=== PATIENT | male | born 1990 | race African-American/Black ===

== ENCOUNTER 2017-12-07 15:05 | Emergency (ER) | payer OTHER ==
[~2017-12-07] VITALS: Ht 180.3 cm; Wt 95.0 kg
[~2017-12-07 15:05] MED LIST: AMOX875T PO
[2017-12-07 15:24] VITALS: BP 132/68; PULSE 66; RESP 16; TEMP 98.6; O2SAT 98
[2017-12-07 16:43] LABS: AUTOMATED NEUTROPHIL # 1.7 TH/MM3 (1.8-7.7); BASOPHIL % 0.8 % (0.0-2.0); EOSINOPHIL # 0.2 TH/MM3 (0-0.4); EOSINOPHIL % 3.6 % (0.0-4.0); HEMATOCRIT 41.2 % (39.0-51.0); HEMOGLOBIN 14.4 GM/DL (13.0-17.0); LYMPH % 46.5 % (9.0-44.0); MEAN CELL VOLUME 92.9 FL (80.0-100.0); MEAN CORPUSCULAR HEMOGLOBIN 32.5 PG (27.0-34.0); MONO % 9.8 % (0.0-8.0); MONOCYTE # 0.4 TH/MM3 (0-0.9); NEUT % 39.3 % (16.0-70.0); PLATELET COUNT 219 TH/MM3 (150-450); RED BLOOD COUNT 4.43 MIL/MM3 (4.50-5.90); RED CELL DISTRIBUTION WIDTH 13.4 % (11.6-17.2); WHITE BLOOD COUNT 4.2 TH/MM3 (4.0-11.0)
--- NOTE | 2017-12-07 16:50 | PD ---
HPI Chief Complaint: Psychiatric Symptoms Time Seen by Provider: 15:28 Travel History International Travel<30 days: No Contact w/Intl Traveler<30days: No Traveled to known affect area: No History of Present Illness HPI 26-year-old male presents to the emergency room under [place] act initiated by Police Department. According Re[place] act, patient texted his girlfriend that he can be found [place] in the [place] when she gets home and he would be better off looking down from has been at her and the children. Patient admits to staying this but states he just did it because he was fighting with her. He denies suicidal or homicidal ideation at this time. He denies history of suicide attempt or psychiatric illness. He denies any medical complaints. He denies any chronic medical conditions or daily medications. Smokes marijuana daily. Smokes cigarettes occasionally. Denies alcohol or any other illicit drug use. Denies hallucinations or delusions. PFSH Past Medical History Medical History: Denies Significant Hx Tetanus Vaccination: Unknown Influenza Vaccination: No Past Surgical History Surgical History: No Previous Surgery Social History Alcohol Use: Yes (OCCASIONALLY) Tobacco Use: Yes (2 CIGARETTES/DAY) Substance Use: Yes (MARIJUANA OCCASIONALLY) Allergies-Medications (Allergen,Severity, Reaction): Coded Allergies: No Known Allergies (Unverified Adverse Reaction, Unknown, 12/07/17) Reported Meds & Prescriptions Reported Meds & Active Scripts Active No Active Prescriptions or Reported Medications Review of Systems Except as stated in HPI: all other systems reviewed are Neg Physical Exam Narrative GENERAL: Well-nourished, well-developed male in no acute distress. Afebrile. Ambulatory. SKIN: Focused skin assessment warm/dry. HEAD: Normocephalic. EYES: No scleral icterus. No injection or drainage. NECK: Supple, trachea midline. No JVD or lymphadenopathy. CARDIOVASCULAR: Regular rate and rhythm without murmurs, gallops, or rubs. RESPIRATORY: Breath sounds equal bilaterally. No accessory muscle use. PSYCHIATRIC: No delusional thought processes. No hallucinations. Normal affect. Data Data Last Documented VS Vital Signs Date Time Temp Pulse Resp B/P (MAP) Pulse Ox O2 Delivery O2 Flow Rate FiO2 12/07/17 15:24 98.6 66 16 132/68 (89) 98 Orders Orders Complete Blood Count With Diff (12/07/17 16:06) Comprehensive Metabolic Panel (12/07/17 16:06) Thyroid Stimulating Hormone (12/07/17 16:06) Psych Screen (12/07/17 16:06) Drug Screen, Random Urine (12/07/17 16:06) Alcohol (Ethanol) (12/07/17 16:06) Labs Laboratory Tests Test 12/07/17 16:15 White Blood Count 4.2 TH/MM3 Red Blood Count 4.43 MIL/MM3 Hemoglobin 14.4 GM/DL Hematocrit 41.2 % Mean Corpuscular Volume 92.9 FL Mean Corpuscular Hemoglobin 32.5 PG Mean Corpuscular Hemoglobin Concent 35.0 % Red Cell Distribution Width 13.4 % Platelet Count 219 TH/MM3 Mean Platelet Volume 8.0 FL Neutrophils (%) (Auto) 39.3 % Lymphocytes (%) (Auto) 46.5 % Monocytes (%) (Auto) 9.8 % Eosinophils (%) (Auto) 3.6 % Basophils (%) (Auto) 0.8 % Neutrophils # (Auto) 1.7 TH/MM3 Lymphocytes # (Auto) 2.0 TH/MM3 Monocytes # (Auto) 0.4 TH/MM3 Eosinophils # (Auto) 0.2 TH/MM3 Basophils # (Auto) 0.0 TH/MM3 CBC Comment DIFF FINAL Differential Comment Blood Urea Nitrogen 9 MG/DL Creatinine 0.95 MG/DL Random Glucose 87 MG/DL Total Protein 7.5 GM/DL Albumin 3.7 GM/DL Calcium Level 8.6 MG/DL Alkaline Phosphatase 114 U/L Aspartate Amino Transf (AST/SGOT) 16 U/L Alanine Aminotransferase (ALT/SGPT) 30 U/L Total Bilirubin 0.4 MG/DL Sodium Level 139 MEQ/L Potassium Level 3.7 MEQ/L Chloride Level 105 MEQ/L Carbon Dioxide Level 28.9 MEQ/L Anion Gap 5 MEQ/L Estimat Glomerular Filtration Rate 116 ML/MIN Thyroid Stimulating Hormone 3rd Gen 0.609 uIU/ML Urine Opiates Screen NEG Urine Barbiturates Screen NEG Urine Amphetamines Screen NEG Urine Benzodiazepines Screen NEG Urine Cocaine Screen NEG Urine Cannabinoids Screen POS Ethyl Alcohol Level LESS THAN 3 MG/DL MDM Medical Decision Making Medical Screen Exam Complete: Yes Emergency Medical Condition: Yes Medical Record Reviewed: Yes Differential Diagnosis Suicidal ideation, adjustment disorder, mood disorder Narrative Course 26-year-old otherwise healthy male presents to the emergency room under [place] act initiated by the police department after he texted his girlfriend he was going to kill himself. Patient states he said this out of anger and denies suicidal homicidal ideation at this time. Denies any medical complaints. Physical exam is unremarkable. Vital signs stable. CBC and CMP are unremarkable. Toxicology is positive for cannabinoids. He is medically cleared for psychiatric evaluation. Scripts No Active Prescriptions or Reported Meds Condition: Nayely Fraire Dec 07, 2017 16:50
[2017-12-07 16:53] LABS: ALBUMIN 3.7 GM/DL (3.4-5.0); ALT (GPT) 30 U/L (12-78); AST (GOT) 16 U/L (15-37); BICARBONATE 28.9 MEQ/L (21.0-32.0); BLOOD UREA NITROGEN 9 MG/DL (7-18); CALCIUM 8.6 MG/DL (8.5-10.1); CHLORIDE 105 MEQ/L (98-107); CREATININE 0.95 MG/DL (0.60-1.30); GLOMERULAR FILTRATION RATE 116 ML/MIN (>89); GLUCOSE,RANDOM 87 MG/DL (74-106); SODIUM (NA) 139 MEQ/L (136-145)
[2017-12-07 17:03] LABS: ALKALINE PHOSPHATASE 114 U/L (45-117); TOTAL BILIRUBIN ADULT 0.4 MG/DL (0.2-1.0); TOTAL PROTEIN 7.5 GM/DL (6.4-8.2)
[2017-12-08 01:00] VITALS: BP 130/72; PULSE 72; RESP 18; O2SAT 98
[2017-12-08 08:00] VITALS: BP 118/70; PULSE 72; RESP 17; O2SAT 100
--- NOTE | 2017-12-08 10:57 | PD ---
Data Data Last Documented VS Vital Signs Date Time Temp Pulse Resp B/P (MAP) Pulse Ox O2 Delivery O2 Flow Rate FiO2 12/08/17 08:00 72 17 118/70 (86) 100 Room Air 12/07/17 15:24 98.6 Orders Orders Complete Blood Count With Diff (12/07/17 16:06) Comprehensive Metabolic Panel (12/07/17 16:06) Thyroid Stimulating Hormone (12/07/17 16:06) Psych Screen (12/07/17 16:06) Drug Screen, Random Urine (12/07/17 16:06) Alcohol (Ethanol) (12/07/17 16:06) Ed Discharge Order (12/08/17 10:55) Labs Laboratory Tests Test 12/07/17 16:15 White Blood Count 4.2 TH/MM3 Red Blood Count 4.43 MIL/MM3 Hemoglobin 14.4 GM/DL Hematocrit 41.2 % Mean Corpuscular Volume 92.9 FL Mean Corpuscular Hemoglobin 32.5 PG Mean Corpuscular Hemoglobin Concent 35.0 % Red Cell Distribution Width 13.4 % Platelet Count 219 TH/MM3 Mean Platelet Volume 8.0 FL Neutrophils (%) (Auto) 39.3 % Lymphocytes (%) (Auto) 46.5 % Monocytes (%) (Auto) 9.8 % Eosinophils (%) (Auto) 3.6 % Basophils (%) (Auto) 0.8 % Neutrophils # (Auto) 1.7 TH/MM3 Lymphocytes # (Auto) 2.0 TH/MM3 Monocytes # (Auto) 0.4 TH/MM3 Eosinophils # (Auto) 0.2 TH/MM3 Basophils # (Auto) 0.0 TH/MM3 CBC Comment DIFF FINAL Differential Comment Blood Urea Nitrogen 9 MG/DL Creatinine 0.95 MG/DL Random Glucose 87 MG/DL Total Protein 7.5 GM/DL Albumin 3.7 GM/DL Calcium Level 8.6 MG/DL Alkaline Phosphatase 114 U/L Aspartate Amino Transf (AST/SGOT) 16 U/L Alanine Aminotransferase (ALT/SGPT) 30 U/L Total Bilirubin 0.4 MG/DL Sodium Level 139 MEQ/L Potassium Level 3.7 MEQ/L Chloride Level 105 MEQ/L Carbon Dioxide Level 28.9 MEQ/L Anion Gap 5 MEQ/L Estimat Glomerular Filtration Rate 116 ML/MIN Thyroid Stimulating Hormone 3rd Gen 0.609 uIU/ML Urine Opiates Screen NEG Urine Barbiturates Screen NEG Urine Amphetamines Screen NEG Urine Benzodiazepines Screen NEG Urine Cocaine Screen NEG Urine Cannabinoids Screen POS Ethyl Alcohol Level LESS THAN 3 MG/DL MDM Supervised Visit with JOSE DANIEL: Yes Narrative Course Patient seen by Dr. Marshall, cleared for discharge. Diagnosis Primary Impression: Suicidal ideation Med/Other Pt SpecificInfo: No Change to Meds Scripts No Active Prescriptions or Reported Meds Disposition: 01 DISCHARGE HOME Condition: Shalom Young MD Dec 08, 2017 10:57
--- NOTE | 2017-12-08 11:49 | PD.PSY.CON ---
Provisional Diagnosis Admission Date [place] I. Adjustment disorder with depressed mood, cannabis use disorder [place] II. Deferred [place] III. No significant medical History of Present Illness Service Psychiatry Consult Requested By ER Reason for Consult Under Reinoso act Primary Care Physician No Primary Care Physician HPI The patient is a 26-year-old -[place] man, domiciled with his girlfriend in [place], unemployed, father of 3 kids, without no previous psychiatric history, cannabis use disorder, no previous suicide attempts, no significant medical history, presents to the emergency room under Reinoso act initiated by Police Department. According Reinoso act, patient texted his girlfriend that he can be found [place] in the [place] when she gets home and he would be better off looking down from has been at her and the children. Patient admits to staying this but states he just did it because he was fighting with her "at the moment I was frustrated". He denies suicidal or homicidal ideation at this time. He denies history of suicide attempt or psychiatric illness. He denies any medical complaints. He denies any chronic medical conditions or daily medications. Smokes marijuana daily. Smokes cigarettes occasionally. Denies alcohol or any other illicit drug use. Denies hallucinations or delusions. I got collateral information from his girlfriend, , who reports that she called the police yesterday because she came scare about his behavior "he had never say sounds like this before". But at this moment she understands that he was just most probably trying to impress her and he was not trying to commit suicide. She states that she does not think that he needs psychiatric admission, because he is reported suicidal ideation was just the result of an argument yesterday, and he has not been depressed or psychotic. At this moment, she states, the patient is a baseline. She is safe with a discharge at this moment. Review of Systems Constitutional: DENIES: Diaphoretic episodes, Fatigue, Fever, Weight gain, Weight loss, Chills, Dizziness, Change in appetite, Night Sweats Endocrine: DENIES: Heat/cold intolerance, Polydipsia, Polyuria, Polyphagia Eyes: DENIES: Blurred vision, Diplopia, Eye inflammation, Eye pain, Vision loss , Photosensitivity, Double Vision Ears, nose, mouth, throat: DENIES: Tinnitus, Hearing loss, Vertigo, Nasal discharge, Oral lesions, Throat pain, Hoarseness, Ear Pain, Running Nose, Epistaxis, Sinus Pain, Toothache, Odynophagia Respiratory: DENIES: Apneas, Cough, Snoring, Wheezing, Hemoptysis, Sputum production, Shortness of breath Cardiovascular: DENIES: Chest pain, Palpitations, Syncope, Dyspnea on Exertion , PND, Lower Extremity Edema, Orthopnea, Claudication Gastrointestinal: DENIES: Abdominal pain, Black stools, Bloody stools, Constipation, Diarrhea, Nausea, Vomiting, Difficulty Swallowing, Anorexia Genitourinary: DENIES: Sexual dysfunction, Urinary frequency, Urinary incontinence, Urgency, Hematuria, Dysuria, Nocturia, Penile Discharge, Testicular Pain, Testicular Swelling Musculoskeletal: DENIES: Joint pain, Muscle aches, Stiffness, Joint Swelling, Back pain, Neck pain Hematologic/lymphatic: DENIES: Bruising, Lymphadenopathy Immunologic/allergic: DENIES: Eczema, Urticaria Neurologic: DENIES: Abnormal gait, Headache, Localized weakness, Paresthesias, Seizures, Speech Problems, Tremor, Poor Balance Psychiatric: DENIES: Anxiety, Confusion, Mood changes, Depression, Hallucinations, Agitation, Suicidal Ideation, Homicidal Ideation, Delusions Past Family Social History Coded Allergies: No Known Allergies (Unverified Adverse Reaction, Unknown, 12/07/17) Discontinued Scripts Amoxicillin (Amoxil) 875 Mg Tab, 875 MG PO BID for 10 Days, TAB Prov:Elidia Walden MD 10/24/15 Family Psych History No family psychiatric Social History Patient was born and raised in [place], he lives in [place] with his girlfriend and 3 kids, he is unemployed, highest level of education is high Patient's Strengths (min. 2) Family support Physical Exam No tremors, no EPS, no stiffness, no psychomotor agitation or retardation Vital Signs Vital Signs Date Time Temp Pulse Resp B/P (MAP) Pulse Ox O2 Delivery O2 Flow Rate FiO2 12/08/17 11:04 12/08/17 08:00 72 17 100 Room Air 12/07/17 15:24 98.6 Lab Results Test 12/07/17 16:15 White Blood Count 4.2 TH/MM3 Red Blood Count 4.43 MIL/MM3 Hemoglobin 14.4 GM/DL Hematocrit 41.2 % Mean Corpuscular Volume 92.9 FL Mean Corpuscular Hemoglobin 32.5 PG Mean Corpuscular Hemoglobin Concent 35.0 % Red Cell Distribution Width 13.4 % Platelet Count 219 TH/MM3 Mean Platelet Volume 8.0 FL Neutrophils (%) (Auto) 39.3 % Lymphocytes (%) (Auto) 46.5 % Monocytes (%) (Auto) 9.8 % Eosinophils (%) (Auto) 3.6 % Basophils (%) (Auto) 0.8 % Neutrophils # (Auto) 1.7 TH/MM3 Lymphocytes # (Auto) 2.0 TH/MM3 Monocytes # (Auto) 0.4 TH/MM3 Eosinophils # (Auto) 0.2 TH/MM3 Basophils # (Auto) 0.0 TH/MM3 CBC Comment DIFF FINAL Differential Comment Blood Urea Nitrogen 9 MG/DL Creatinine 0.95 MG/DL Random Glucose 87 MG/DL Total Protein 7.5 GM/DL Albumin 3.7 GM/DL Calcium Level 8.6 MG/DL Alkaline Phosphatase 114 U/L Aspartate Amino Transf (AST/SGOT) 16 U/L Alanine Aminotransferase (ALT/SGPT) 30 U/L Total Bilirubin 0.4 MG/DL Sodium Level 139 MEQ/L Potassium Level 3.7 MEQ/L Chloride Level 105 MEQ/L Carbon Dioxide Level 28.9 MEQ/L Anion Gap 5 MEQ/L Estimat Glomerular Filtration Rate 116 ML/MIN Thyroid Stimulating Hormone 3rd Gen 0.609 uIU/ML Urine Opiates Screen NEG Urine Barbiturates Screen NEG Urine Amphetamines Screen NEG Urine Benzodiazepines Screen NEG Urine Cocaine Screen NEG Urine Cannabinoids Screen POS Ethyl Alcohol Level LESS THAN 3 MG/DL Mental Status Examination Appearance: Appropriate Consciousness: Alert Orientation: x4 Motor Activity: Normal gait Speech: Unremarkable Language: Adequate Fund of Knowledge: Adequate Attention and Concentration: Adequate Memory: Unremarkable Mood: Appropriate Affect: Appropriate Thought Process & Associations: Intact Thought Content: Appropriate Hallucination Type: None Delusion Type: None Suicidal Ideation: No Suicidal Plan: No Suicidal Intention: No Homicidal Ideation: No Homicidal Plan: No Homicidal Intention: No Insight: Adequate Judgment: Adequate Assessment & Plan Problem List: (1) Adjustment disorder with depressed mood ICD Codes: F43.21 - Adjustment disorder with depressed mood Assessment & Plan: At the moment of my evaluation the patient does not present any evidence of depression, anxiety, kameron or psychosis. The patient denies suicidal or homicidal ideation, he denies visual and auditory hallucinations. On longitudinal observation the patient has not displayed any ideas of reference , paranoia, loosening of associations, agitation or aggressive behavior. He does not meet criteria for involuntary psychiatric commitment at this moment. His recent suicidal statement by text was most probably the result of frustration after an argument with his girlfriend. Reinoso act will be lifted. Assessment & Plan Estimated LOS: Terry Rushing MD Dec 08, 2017 11:49
== END 2017-12-08 11:11 | disposition home or self-care (01) ==
LOC: NEPD 15:05
DX: R45.851 Suicidal ideations (principal); F17.210 Nicotine dependence, cigarettes, uncomplicated; F12.90 Cannabis use, unspecified, uncomplicated
CPT/HCPCS: 80053; 80307; 84443; 85025; 99284